=== PATIENT | male | born 1980 | race Caucasian/White ===

== ENCOUNTER 2017-08-16 23:33 | Emergency (ER) | payer MEDICAID ==
[2017-08-17] MEDS: IBUPROFEN 600 MG TAB PO (03:12)
== END 2017-08-17 04:33 | disposition home or self-care (01) ==
LOC: FTE 23:33
DX: R07.9 Chest pain, unspecified (principal); E11.9 Type 2 diabetes mellitus without complications
CPT/HCPCS: 71045; 93005; 99284-25